=== PATIENT | male | born 1940 | race Caucasian/White ===

== ENCOUNTER → 2017-04-02 | Outpatient (CLI) | payer OTHER | LOC: HYPER 06:58 | DX: L89.321 Pressure ulcer of left buttock, stage 1 (principal); G82.20 Paraplegia, unspecified; E78.5 Hyperlipidemia, unspecified; Z86.718 Personal history of other venous thrombosis and embolism; I10 Essential (primary) hypertension; Z87.01 Personal history of pneumonia (recurrent); M19.90 Unspecified osteoarthritis, unspecified site; Z72.89 Other problems related to lifestyle ==

== ENCOUNTER → 2017-09-24 | Outpatient (CLI) | payer OTHER | LOC: HYPER 06:41 | DX: S31.829D Unspecified open wound of left buttock, subsequent encounter (principal); L89.321 Pressure ulcer of left buttock, stage 1; G82.20 Paraplegia, unspecified; E78.5 Hyperlipidemia, unspecified; I10 Essential (primary) hypertension; M19.90 Unspecified osteoarthritis, unspecified site; A48.0 Gas gangrene; Z86.718 Personal history of other venous thrombosis and embolism; X58.XXXD Exposure to other specified factors, subsequent encounter ==

== ENCOUNTER → 2017-09-25 | Outpatient (CLI) | payer OTHER | LOC: MRI 06:12 | DX: L97.529 Non-pressure chronic ulcer of other part of left foot with unspecified severity (principal); I10 Essential (primary) hypertension; M47.896 Other spondylosis, lumbar region ==

== ENCOUNTER → 2017-09-30 | Outpatient (CLI) | payer OTHER | LOC: HYPER 06:52 | DX: L89.320 Pressure ulcer of left buttock, unstageable (principal); L89.220 Pressure ulcer of left hip, unstageable; I10 Essential (primary) hypertension; E78.5 Hyperlipidemia, unspecified; M19.90 Unspecified osteoarthritis, unspecified site; G82.20 Paraplegia, unspecified; Z86.718 Personal history of other venous thrombosis and embolism; Z87.01 Personal history of pneumonia (recurrent) ==

== ENCOUNTER → 2017-10-16 | Outpatient (CLI) | payer OTHER | LOC: HYPER 06:43 | DX: L89.320 Pressure ulcer of left buttock, unstageable (principal); G82.20 Paraplegia, unspecified; E78.5 Hyperlipidemia, unspecified; I10 Essential (primary) hypertension; M19.90 Unspecified osteoarthritis, unspecified site; Z86.718 Personal history of other venous thrombosis and embolism ==

== ENCOUNTER → 2017-10-30 | Outpatient (CLI) | payer OTHER | LOC: HYPER 07:00 | DX: L89.220 Pressure ulcer of left hip, unstageable (principal); G82.20 Paraplegia, unspecified; E78.5 Hyperlipidemia, unspecified; I10 Essential (primary) hypertension; M19.90 Unspecified osteoarthritis, unspecified site; Z87.01 Personal history of pneumonia (recurrent); Z86.73 Personal history of transient ischemic attack (TIA), and cerebral infarction without residual deficits ==

== ENCOUNTER → 2017-11-11 | Outpatient (CLI) | payer OTHER | LOC: HYPER 06:56 | DX: L89.320 Pressure ulcer of left buttock, unstageable (principal); L89.220 Pressure ulcer of left hip, unstageable; E78.5 Hyperlipidemia, unspecified; I10 Essential (primary) hypertension; M19.90 Unspecified osteoarthritis, unspecified site; G82.20 Paraplegia, unspecified; Z87.01 Personal history of pneumonia (recurrent); Z86.718 Personal history of other venous thrombosis and embolism ==

== ENCOUNTER → 2017-12-11 | Outpatient (CLI) | payer OTHER | LOC: HYPER 06:53 | DX: L89.223 Pressure ulcer of left hip, stage 3 (principal); L89.320 Pressure ulcer of left buttock, unstageable; I10 Essential (primary) hypertension; E78.5 Hyperlipidemia, unspecified; G82.20 Paraplegia, unspecified; M19.90 Unspecified osteoarthritis, unspecified site; Z87.01 Personal history of pneumonia (recurrent); Z86.718 Personal history of other venous thrombosis and embolism ==

== ENCOUNTER → 2018-06-18 | Outpatient (CLI) | payer OTHER | LOC: HYPER 06:53 | DX: L89.892 Pressure ulcer of other site, stage 2 (principal); E78.5 Hyperlipidemia, unspecified; G82.20 Paraplegia, unspecified; I10 Essential (primary) hypertension; M19.90 Unspecified osteoarthritis, unspecified site; Z86.718 Personal history of other venous thrombosis and embolism ==

== ENCOUNTER → 2018-07-16 | Outpatient (CLI) | payer OTHER | LOC: HYPER 07-09 15:52 | DX: L89.892 Pressure ulcer of other site, stage 2 (principal); E78.5 Hyperlipidemia, unspecified; G82.20 Paraplegia, unspecified; I10 Essential (primary) hypertension; M19.90 Unspecified osteoarthritis, unspecified site; Z86.718 Personal history of other venous thrombosis and embolism ==

== ENCOUNTER → 2018-07-29 | Outpatient (CLI) | payer OTHER | LOC: HYPER 07:14 | DX: L89.892 Pressure ulcer of other site, stage 2 (principal); G82.20 Paraplegia, unspecified; E78.5 Hyperlipidemia, unspecified; I10 Essential (primary) hypertension; M19.90 Unspecified osteoarthritis, unspecified site; Z86.718 Personal history of other venous thrombosis and embolism ==

== ENCOUNTER → 2018-08-06 | Outpatient (CLI) | payer OTHER | LOC: HYPER 06:34 | DX: L89.892 Pressure ulcer of other site, stage 2 (principal); G82.20 Paraplegia, unspecified; E78.5 Hyperlipidemia, unspecified; I10 Essential (primary) hypertension; M19.90 Unspecified osteoarthritis, unspecified site; Z86.718 Personal history of other venous thrombosis and embolism ==

== ENCOUNTER → 2018-08-13 | Outpatient (CLI) | payer OTHER | LOC: HYPER 06:55 | DX: L89.892 Pressure ulcer of other site, stage 2 (principal); I10 Essential (primary) hypertension; E78.5 Hyperlipidemia, unspecified; G82.20 Paraplegia, unspecified; M19.90 Unspecified osteoarthritis, unspecified site; Z87.01 Personal history of pneumonia (recurrent); Z86.718 Personal history of other venous thrombosis and embolism ==

== ENCOUNTER → 2018-08-20 | Outpatient (CLI) | payer OTHER | LOC: HYPER 06:40 | DX: L89.892 Pressure ulcer of other site, stage 2 (principal); G82.20 Paraplegia, unspecified; E78.5 Hyperlipidemia, unspecified; I10 Essential (primary) hypertension; M19.90 Unspecified osteoarthritis, unspecified site; Z86.718 Personal history of other venous thrombosis and embolism ==

== ENCOUNTER → 2018-09-03 | Outpatient (CLI) | payer OTHER | LOC: HYPER 08-27 06:56 | DX: L89.894 Pressure ulcer of other site, stage 4 (principal); G82.20 Paraplegia, unspecified; E78.5 Hyperlipidemia, unspecified; I10 Essential (primary) hypertension; M19.90 Unspecified osteoarthritis, unspecified site; Z86.718 Personal history of other venous thrombosis and embolism ==

== ENCOUNTER → 2018-09-16 | Outpatient (CLI) | payer OTHER ==
[~2018-09-16] MED LIST: ASPIR 8181 MG PO; COQ-10100 MG PO; ENOXAPARIN40 MG/0.1 SUBQ; LOPRESSOR50 PO; PRINIVIL20 MG PO; ROBITUSSIN100 MG/53 PO; VITAMIN D3400 UNIT PO; VITAMINC500 PO; ZOCOR20 MG PO; ZYRTEC10 M5 PO
== END ==
LOC: HYPER 09-10 07:30
DX: L89.894 Pressure ulcer of other site, stage 4 (principal); E78.5 Hyperlipidemia, unspecified; I10 Essential (primary) hypertension; M19.90 Unspecified osteoarthritis, unspecified site; G82.20 Paraplegia, unspecified; Z79.01 Long term (current) use of anticoagulants; Z86.718 Personal history of other venous thrombosis and embolism

== ENCOUNTER → 2018-09-17 | Outpatient (CLI) | payer OTHER ==
[~2018-09-17] VITALS: Ht 190.5 cm; Wt 120.2 kg
[2018-09-17 12:40] VITALS: BP 122/56
== END | disposition home or self-care (01) ==
LOC: CATH 08:15
DX: I87.2 Venous insufficiency (chronic) (peripheral) (principal); I87.1 Compression of vein; I10 Essential (primary) hypertension; E78.5 Hyperlipidemia, unspecified; Z85.828 Personal history of other malignant neoplasm of skin; Z90.49 Acquired absence of other specified parts of digestive tract; Z90.5 Acquired absence of kidney; Z90.81 Acquired absence of spleen; Z98.890 Other specified postprocedural states; Z79.899 Other long term (current) drug therapy; Z88.8 Allergy status to other drugs, medicaments and biological substances; Z79.82 Long term (current) use of aspirin

== ENCOUNTER → 2018-10-08 | Outpatient (CLI) | payer OTHER | LOC: HYPER 06:56 | DX: L89.894 Pressure ulcer of other site, stage 4 (principal); E78.5 Hyperlipidemia, unspecified; I10 Essential (primary) hypertension; M19.90 Unspecified osteoarthritis, unspecified site; G82.20 Paraplegia, unspecified; Z86.718 Personal history of other venous thrombosis and embolism; Z79.01 Long term (current) use of anticoagulants ==